=== PATIENT | female | born 1975 | race Hispanic/Latino ===

== ENCOUNTER 2020-11-05 09:52 | Emergency (ER) | payer OTHER, SELFPAY ==
--- NOTE | 2020-11-05 11:54 | ER ---
Nurse's Notes [facility] Name: Jillian Alberto Age: 45 yrs Sex: Female : 1975 Arrival Date: 11/05/2020 Time: 10:00 Bed Waiting Private MD: Diagnosis: Presentation: 11/05 10:05 Chief complaint: Patient states: "I'm seeing lights in my eyes, forehead pressure and hb under eye pressure, and nausea." Denies seeing lights at this time. Reports that her friend gave her a pill to take for her HTN. Coronavirus screen: Client indicates they have traveled out of the [place] in the last 14 days. Client traveled to: [place] At this time, the client does not indicate any symptoms associated with coronavirus-19. Ebola Screen: No symptoms or risks identified at this time. Risk Assessment: Do you want to hurt yourself or someone else? Patient reports no desire to harm self or others. Onset of symptoms was November 05, 2020. 10:05 Method Of Arrival: Ambulatory hb 10:05 Acuity: ISELA 3 hb 10:07 Initial Sepsis Screen: Does the patient meet any 2 criteria? No. Patient's initial hb sepsis screen is negative. Does the patient have a suspected source of infection? No. Patient's initial sepsis screen is negative. Triage Assessment: 10:05 Headache History: The patient has had previous headaches and this one is similar to sv previous episodes. General: Appears in no apparent distress. comfortable, Behavior is calm, cooperative, appropriate for age. Pain: Complains of pain in face. Neuro: Level of Consciousness is awake, alert, obeys commands, Oriented to person, place, time, situation, Gait is steady. GI: Reports nausea. Historical: - Allergies: 10:06 No Known Allergies; hb - PMHx: 10:07 High Cholesterol; hb - PSHx: 10:06 None; hb - Immunization history:: Client reports having NOT received the Covid vaccine. Vital Signs: 10:07 BP 122 / 75; Pulse 73; Resp 16; Temp 97.7; Pulse Ox 99% ; Weight 68.04 kg; Height 5 ft. hb 0 in. (152.40 cm); Pain 7/10; 10:07 Body Mass Index 29.29 (68.04 kg, 152.40 cm) hb ED Course: 10:00 Patient arrived in ED. ds1 10:06 Triage completed. hb 10:06 Arm band placed on. hb Administered Medications: No medications were administered Outcome: 11:54 Patient left the ED. sv Signatures: Marcie Roche RN Tasha García ds1 Yvette Tello RN RN hb Corrections: (The following items were deleted from the chart) 10:07 10:05 Chief complaint: Patient states: "I'm seeing lights in my eyes, forehead pressure hb and under eye pressure, and nausea." Denies seeing lights at this time. hb 10:07 10:06 PMHx: None; hb hb
[2020-11-05 11:57] VITALS: BP 122/75; TEMP 97.7; O2SAT 99
== END 2020-11-05 11:54 | disposition left against medical advice (07) ==
LOC: ER 09:52
DX: Z02.9 Encounter for administrative examinations, unspecified (principal)
CPT/HCPCS: 99281

== ENCOUNTER 2020-11-05 17:01 | Emergency (ER) | payer OTHER, SELFPAY ==
--- NOTE | 2020-11-05 20:19 | RAD REPORT ---
EXAM DESCRIPTION: CT - Head Brain Wo Cont - 11/05/2020 8:12 pm CLINICAL HISTORY: DIZZINESS Headache, drowsiness COMPARISON: Head Brain Wo Cont dated 05/16/2016 TECHNIQUE: All CT scans are performed using dose optimization technique as appropriate and may inclu de automated exposure control or mA/KV adjustment according to patient size. FINDINGS: No intracranial hemorrhage, hydrocephalus or extra-axial fluid collection.No areas of brai n edema or evidence of midline shift. The paranasal sinuses and mastoids are clear. The calvarium is intact. IMPRESSION: No acute intracranial abnormality.
--- NOTE | 2020-11-05 20:22 | RAD REPORT ---
EXAM DESCRIPTION: RAD - Chest Single View - 11/05/2020 8:15 pm CLINICAL HISTORY: COUGH Chest pain. COMPARISON: No comparisons FINDINGS: Portable technique limits examination quality. The lungs are grossly clear. The heart is normal in size. No displaced fractures. IMPRESSION: No acute intrathoracic process suspected.
[2020-11-05] MEDS ORDERED: NA CHLORIDE 0.9% 1,000 ML ONE (20:23)
[2020-11-05 20:27] LABS: Urine Blood 2+ (Negative); Urine Glucose Negative (Negative); Urine Protein Negative (Negative); Urine Specific Gravity >=1.030 (1.005-1.030)
[2020-11-05 20:31] LABS: Absolute Lymphocytes (CBC) 2.4 K/uL (0.7-4.9); Basophils % 0.8 % (0-1.3); Hematocrit 34.5 % (36.0-45.0); Lymphocytes % 32.8 % (15.3-44.8); MPV 7.7 fL (7.6-11.3); RBC Red Blood Cell Count 3.82 M/uL (3.86-4.86)
[2020-11-05 20:44] LABS: Protime INR 0.96
[2020-11-05 20:49] LABS: ALT/SGPT 26 U/L (12-78); Albumin 3.5 g/dL (3.4-5.0); Alkaline Phosphatase 92 U/L (45-117); BUN Blood Urea Nitrogen 13 mg/dL (7-18); Bicarbonate 28 mmol/L (21-32); Bilirubin Direct < 0.1 mg/dL (0-0.2); Bilirubin Total 0.1 mg/dL (0.2-1.0); C-Reactive Protein 6.77 mg/L (<3.00); Glucose Level 102 mg/dL (74-106); NT PRO-BNP 11 pg/mL (<125); Protein, Total 7.6 g/dL (6.4-8.2); Sodium Level 139 mmol/L (136-145); Troponin (Emerg Dept Use Only) < 0.02 ng/mL (0.0-0.045)
[2020-11-05 21:10] LABS: AST/SGOT 17 U/L (15-37); Magnesium 2.2 mg/dL (1.8-2.4); Potassium 3.9 mmol/L (3.5-5.1)
[2020-11-05] MEDS ORDERED: ASPIRIN 81 MG CHEWABLE TABLET ONE (21:48)
[2020-11-05] MEDS ORDERED: FAMOTIDINE 20 MG/2 ML VIAL IV ONE (21:49)
[2020-11-05] MEDS ORDERED: ONDANSETRON 4 MG/2 ML VIAL ONE (21:49)
[2020-11-05] MEDS ORDERED: KETOROLAC 30 MG/ML INJ ONE (21:49)
[2020-11-05 22:15] LABS: Urine Specific Gravity/Preg >1.030 (1.005-1.030)
--- NOTE | 2020-11-05 23:14 | EDPHYS ---
Physician Documentation [facility] Name: Jillian Alberto Age: 45 yrs Sex: Female : 1975 Arrival Date: 11/05/2020 Time: 17:03 Bed 2 Private MD: ED Physician Uche Quan HPI: 11/05 19:59 This 45 yrs old Female presents to ER via Ambulatory with complaints of susan Blurred Vision, Headache. 19:59 The patient complains of pain to the top of head, forehead, right eye, left eye, left susan frontal area and right frontal area. The patient describes the headache as aching. Onset: The symptoms/episode began/occurred today. Associated signs and symptoms: Pertinent positives: blurred vision. Severity of symptoms: At its worst the pain was mild, in the emergency department the pain is unchanged. Headache History: The patient has had previous headaches and this one is similar to previous episodes. The symptoms are alleviated by nothing. the symptoms are aggravated by nothing. The patient has not experienced similar symptoms in the past. 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 - Social history:: Smoking status: Patient denies any tobacco usage or history of. - Family history:: not pertinent. ROS: 19:59 Constitutional: Negative for fever, chills, and weight loss, ENT: Negative for injury, susan pain, and discharge, Neck: Negative for injury, pain, and swelling, Cardiovascular: Negative for chest pain, palpitations, and edema, Respiratory: Negative for shortness of breath, cough, wheezing, and pleuritic chest pain, Abdomen/GI: Negative for abdominal pain, nausea, vomiting, diarrhea, and constipation, Back: Negative for injury and pain, : Negative for injury, bleeding, discharge, and swelling, MS/Extremity: Negative for injury and deformity, Skin: Negative for injury, rash, and discoloration, Psych: Negative for depression, anxiety, suicide ideation, homicidal ideation, and hallucinations, Allergy/Immunology: Negative for hives, rash, and allergies, Endocrine: Negative for neck swelling, polydipsia, polyuria, polyphagia, and marked weight changes. 19:59 Eyes: Positive for blurry vision. 19:59 Neuro: Positive for headache. Exam: 19:59 Constitutional: This is a well developed, well nourished patient who is awake, alert, susan and in no acute distress. Head/Face: Normocephalic, atraumatic. Eyes: Pupils equal round and reactive to light, extra-ocular motions intact. Lids and lashes normal. Conjunctiva and sclera are non-icteric and not injected. Cornea within normal limits. Periorbital areas with no swelling, redness, or edema. ENT: Nares patent. No nasal discharge, no septal abnormalities noted. Tympanic membranes are normal and external auditory canals are clear. Oropharynx with no redness, swelling, or masses, exudates, or evidence of obstruction, uvula midline. Mucous membranes moist. Neck: Trachea midline, no thyromegaly or masses palpated, and no cervical lymphadenopathy. Supple, full range of motion without nuchal rigidity, or vertebral point tenderness. No Meningismus. Chest/axilla: Normal chest wall appearance and motion. Nontender with no deformity. No lesions are appreciated. Cardiovascular: Regular rate and rhythm with a normal S1 and S2. No gallops, murmurs, or rubs. Normal PMI, no JVD. No pulse deficits. Respiratory: Lungs have equal breath sounds bilaterally, clear to auscultation and percussion. No rales, rhonchi or wheezes noted. No increased work of breathing, no retractions or nasal flaring. Abdomen/GI: Soft, non-tender, with normal bowel sounds. No distension or tympany. No guarding or rebound. No evidence of tenderness throughout. Back: No spinal tenderness. No costovertebral tenderness. Full range of motion. Female : Normal external genitalia. Skin: Warm, dry with normal turgor. Normal color with no rashes, no lesions, and no evidence of cellulitis. MS/ Extremity: Pulses equal, no cyanosis. Neurovascular intact. Full, normal range of motion. Neuro: Awake and alert, GCS 15, oriented to person, place, time, and situation. Cranial nerves II-XII grossly intact. Motor strength 5/5 in all extremities. Sensory grossly intact. Cerebellar exam normal. Normal gait. Psych: Awake, alert, with orientation to person, place and time. Behavior, mood, and affect are within normal limits. 20:28 ECG was reviewed by the Attending Physician. susan 21:48 Musculoskeletal/extremity: DVT Exam: No signs of deep vein thrombosis. no pain, no susan swelling, no tenderness, negative Homans' sign noted on exam, no appreciated bluish discoloration, no erythema, no increased warmth. Vital Signs: 17:10 BP 128 / 77; Pulse 64; Resp 16; Temp 97.3; Pulse Ox 97% ; Weight 78.02 kg; Height 5 ft. ll1 0 in. (152.40 cm); Pain 7/10; 21:30 BP 105 / 76; Pulse 65; Resp 18; Pulse Ox 99% on R/A; wh 23:00 BP 101 / 72; Pulse 66; Resp 18; Pulse Ox 100% on R/A; wh 17:10 Body Mass Index 33.59 (78.02 kg, 152.40 cm) ll1 NIH Stroke Scale Scores: 19:59 NIHSS Score: 0 susan Kristine Coma Score: 20:01 Eye Response: spontaneous(4). Verbal Response: oriented(5). Motor Response: obeys [facility] commands(6). Total: 15. MDM: 19:22 Patient medically screened. susan 20:01 Differential diagnosis: cluster headache, migraine, temporal arteritis, tension susan headache, trigeminal neuralgia. Data reviewed: vital signs, nurses notes, lab test result(s), EKG, radiologic studies, CT scan, plain films. Data interpreted: media monitor: rate is 64 beats/min, rhythm is regular, Pulse oximetry: on room air is 97 %. Test interpretation: by ED physician or midlevel provider: ECG, plain radiologic studies. Counseling: I had a detailed discussion with the patient and/or guardian regarding: the historical points, exam findings, and any diagnostic results supporting the discharge/admit diagnosis, lab results, radiology results. 11/05 19:59 Order name: Basic Metabolic Panel [facility] 11/05 19:59 Order name: CBC with Diff; Complete Time: 21:25 susan 11/05 19:59 Order name: LFT's; Complete Time: 21:25 susan 11/05 19:59 Order name: Magnesium; Complete Time: 21:25 [facility] 11/05 19:59 Order name: NT PRO-BNP; Complete Time: 21:25 susan 11/05 19:59 Order name: PT-INR; Complete Time: 21:25 [facility] 11/05 19:59 Order name: Troponin (emerg Dept Use Only); Complete Time: 21:25 [facility] 11/05 19:59 Order name: D-Dimer; Complete Time: 21:25 [facility] 11/05 19:59 Order name: Urine Culture [facility] 11/05 19:59 Order name: Basic Metabolic Panel; Complete Time: 21:25 [facility]TN 11/05 20:23 Order name: C-Reactive Protein; Complete Time: 21:25 [facility]TN 11/05 20:23 Order name: Sedimentation Rate, Westergren; Complete Time: 21:25 [facility]TN 11/05 19:59 Order name: XRAY Chest (1 view); Complete Time: 21:25 [facility] 11/05 19:59 Order name: EKG; Complete Time: 20:00 [facility] 11/05 19:59 Order name: Cardiac monitoring; Complete Time: 20:03 [facility] 11/05 19:59 Order name: EKG - Nurse/Tech; Complete Time: 20:03 [facility] 11/05 19:59 Order name: IV Saline Lock; Complete Time: 20:03 [facility] 11/05 19:59 Order name: Labs collected and sent; Complete Time: 20:03 [facility] 11/05 19:59 Order name: O2 Per Protocol; Complete Time: 20:03 [facility] 11/05 19:59 Order name: CT Head Brain wo Cont; Complete Time: 21:25 [facility] 11/05 20:26 Order name: Urine --Ancillary (enter results); Complete Time: 22:27 [facility] 11/05 20:27 Order name: Urine Dipstick-Ancillary; Complete Time: 21:25 [facility] 11/05 21:27 Order name: CT Chest For PE Angio [facility] 11/05 19:59 Order name: O2 Sat Monitoring; Complete Time: 20:03 [facility] 11/05 19:59 Order name: Urine Dipstick-Ancillary (obtain specimen); Complete Time: 20:26 [facility] 11/05 19:59 Order name: Urine Test (obtain specimen); Complete Time: 20:26 [facility] EC:28 Rate is 59 beats/min. Rhythm is regular. QRS [place] is Normal. AR interval is normal. QRS susan interval is normal. QT interval is normal. No Q waves. T waves are Normal. No ST changes noted. Clinical impression: Sinus bradycardia and No evidence of ischemia. Interpreted by me. Reviewed by me. Administered Medications: 20:08 Drug: NS 0.9% 1000 ml Route: IV; Rate: 1 bolus; Site: right antecubital; mg2 23:26 Follow up: Response: No adverse reaction; IV Status: Completed infusion 21:31 Drug: Aspirin 162 mg Route: PO; wh 23:25 Follow up: Response: No adverse reaction wh 21:33 Drug: TORadol 30 mg Route: IVP; Site: right antecubital; wh 23:25 Follow up: Response: No adverse reaction; Pain is decreased wh 21:35 Drug: Pepcid (famotidine) 20 mg Route: IVP; Site: right antecubital; wh 23:25 Follow up: Response: No adverse reaction 21:37 Drug: Zofran (Ondansetron) 4 mg Route: IVP; Site: right antecubital; wh 23:25 Follow up: Response: No adverse reaction wh 23:25 Follow up: Response: No adverse reaction; Nausea is decreased Disposition: 11/05/20 23:13 Discharged to Home. Impression: Headache, Vision sensitivity deficiencies - blurry vision, Chest pain, unspecified - non cardiac. - Condition is Stable. - Discharge Instructions: Blurred Vision, Adult, Nonspecific Chest Pain, General Headache Without Cause, Nonspecific Chest Pain, [id number], Aspirin and Your Heart, General Headache Without Cause, [id number]. - Prescriptions for Ibuprofen 600 mg Oral Tablet - take 1 tablet by ORAL route every 6 hours As needed take with food; 30 tablet. Zofran 4 mg Oral Tablet - take 1 tablet by ORAL route every 12 hours As needed; 14 tablet. Pepcid 20 mg Oral Tablet - take 1 tablet by ORAL route every 12 hours for 10 days; 20 tablet. - Medication Reconciliation Form, Thank You Letter, Antibiotic Education, Prescription Opioid Use form. - Follow up: Private Physician; When: 2 - 3 days; Reason: Recheck today's complaints, Continuance of care, Re-evaluation by your physician. Follow up: Troy Merino; When: 2 - 3 days; Reason: Recheck today's complaints, Re-evaluation by your physician. - Problem is new. - Symptoms have improved. NIH Stroke Scale - NIH Stroke Score Date: 11/05/2020 Time: 19:59 Total Score = 0 1a. Level of Consciousness (LOC) - 0(Alert) 1b. Level of Consciousness (LOC) (Year \T\ Age) - 0(Both) 1c. LOC Commands (Open \T\ Closes Eyes/[place] [employer] Lab Technician) - 0(Both) 2. Best Gaze (Lateral Gaze Paresis) - 0(Normal) 3. Visual Field Loss - 0(No visual loss) 4. Facial Palsy - 0(Normal) 5a. Left Arm: Motor (10-second hold) - 0(No drift) 5b. Right Arm: Motor (10-second hold) - 0(No drift) 6a. Left Leg: Motor (5-second hold - always test supine) - 0(No drift) 6b. Right Leg: Motor (5-second hold - always test supine) - 0(No drift) 7. Limb Ataxia (finger/nose \T\ heel/kevin - test with eyes open) - 0(Absent) 8. Sensory Loss (pinprick arms/legs/face) - 0(Normal) 9. Best Language: Aphasia (description/naming/reading) - 0(No aphasia) 10. Dysarthria (speech clarity - read or repeat words) - 0(Normal) 11. Extinction and Inattention (visual/tactile/auditory/spatial/personal) - 0(No abnormality) Initials: susan Signatures: Dispatcher [employer] EDMS Uche Quan MD MD cha Habalo, Winsy, RN RN Rah Harkins RN RN [facility] Art Rivas RN RN ll1 Corrections: (The following items were deleted from the chart) 20:22 20:03 WESTERGREN SEDRATE+H.LAB.BRZ ordered. EDTN EDMS 20:23 20:03 C-REACTIVE PROTEIN+C.LAB.BRZ ordered. EDTN EDMS 23:26 23:13 11/05/2020 23:13 Discharged to Home. Impression: Headache; Vision wh sensitivity deficiencies - blurry vision; Chest pain, unspecified - non cardiac. Condition is Stable. Discharge Instructions: Blurred Vision, Adult, General Headache Without Cause, General Headache Without Cause, [id number], Nonspecific Chest Pain, Nonspecific Chest Pain, [id number], Aspirin and Your Heart. Prescriptions for Ibuprofen 600 mg Oral Tablet - take 1 tablet by ORAL route every 6 hours As needed take with food; 30 tablet, Zofran 4 mg Oral Tablet - take 1 tablet by ORAL route every 12 hours As needed; 14 tablet, Pepcid 20 mg Oral Tablet - take 1 tablet by ORAL route every 12 hours for 10 days; 20 tablet. and Forms are Medication Reconciliation Form, Thank You Letter, Antibiotic Education, Prescription Opioid Use. Follow up: Private Physician; When: 2 - 3 days; Reason: Recheck today's complaints, Continuance of care, Re-evaluation by your physician. Follow up: Troy Merino; When: 2 - 3 days; Reason: Recheck today's complaints, Re-evaluation by your physician. Problem is new. Symptoms have improved. susan
--- NOTE | 2020-11-05 23:14 | ER ---
Nurse's Notes [facility] Name: Jillian Alberto Age: 45 yrs Sex: Female : 1975 Arrival Date: 11/05/2020 Time: 17:03 Bed 2 Private MD: Diagnosis: Headache;Vision sensitivity deficiencies-blurry vision;Chest pain, unspecified-non cardiac Presentation: 11/05 17:10 Chief complaint: Patient states: MONTENEGRO, int. R eye blurred vision, nausea, for 1 day. MONTENEGRO ll1 is worse with movement. Came this morning, waited 3 hours, then went to [facility]. After eval., they told her to come back to the ER and get checked. Coronavirus screen: Client denies travel out of the [place] in the last 14 days. headache, nausea, Client presents with at least one sign or symptom that may indicate coronavirus-19. Standard/surgical mask placed on the client. Ebola Screen: Patient denies travel to an Ebola-affected area in the 21 days before illness onset. Initial Sepsis Screen: Does the patient meet any 2 criteria? No. Patient's initial sepsis screen is negative. Does the patient have a suspected source of infection? Yes: Other: MONTENEGRO. Risk Assessment: Do you want to hurt yourself or someone else? Patient reports no desire to harm self or others. Onset of symptoms was November 05, 2020. 17:10 Method Of Arrival: Ambulatory ll1 17:10 Acuity: ISELA 3 ll1 Triage Assessment: 19:35 Headache History: The patient has had previous headaches. General: Appears in no mg2 apparent distress. comfortable. Pain: Pain began gradually. Pain: Complains of pain in head Pain currently is 2 out of 10 on a pain scale. Also complains of nausea. 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 - Social history:: Smoking status: Patient denies any tobacco usage or history of. - Family history:: not pertinent. Screenin:35 Abuse screen: Denies threats or abuse. Denies injuries from another. Nutritional mg2 screening: No deficits noted. Tuberculosis screening: No symptoms or risk factors identified. Fall Risk None identified. Assessment: 19:33 General: Appears in no apparent distress. comfortable, Behavior is calm, cooperative. mg2 Pain: Complains of pain in head. Neuro: Level of Consciousness is awake, alert, obeys commands, Oriented to person, place, time, situation. Cardiovascular: Capillary refill < 3 seconds Patient's skin is warm and dry. Respiratory: Airway is patent Respiratory effort is even, unlabored, Respiratory pattern is regular, symmetrical. : No signs and/or symptoms were reported regarding the genitourinary system. EENT: No signs and/or symptoms were reported regarding the EENT system. Derm: Skin is intact, is healthy with good turgor, Skin is pink, warm \T\ dry. normal. Musculoskeletal: Circulation, motion, and sensation intact. Capillary refill < 3 seconds. 19:34 GI: Reports nausea. mg2 21:00 Reassessment: Patient appears in no apparent distress at this time. Patient and/or family updated on plan of care and expected duration. Pain level reassessed. Patient is alert, oriented x 3, equal unlabored respirations, skin warm/dry/pink. 22:30 Reassessment: Patient appears in no apparent distress at this time. Patient and/or family updated on plan of care and expected duration. Pain level reassessed. Patient is alert, oriented x 3, equal unlabored respirations, skin warm/dry/pink. Vital Signs: 17:10 BP 128 / 77; Pulse 64; Resp 16; Temp 97.3; Pulse Ox 97% ; Weight 78.02 kg; Height 5 ft. ll1 0 in. (152.40 cm); Pain 7/10; 21:30 BP 105 / 76; Pulse 65; Resp 18; Pulse Ox 99% on R/A; wh 23:00 BP 101 / 72; Pulse 66; Resp 18; Pulse Ox 100% on R/A; wh 17:10 Body Mass Index 33.59 (78.02 kg, 152.40 cm) ll1 [place] Coma Score: 20:01 Eye Response: spontaneous(4). Verbal Response: oriented(5). Motor Response: obeys [facility] commands(6). Total: 15. NIH Stroke Scale Scores: 19:59 NIHSS Score: 0 [facility] ED Course: 17:03 Patient arrived in ED. am2 17:13 Triage completed. ll1 17:13 Arm band placed on Patient notified of wait time. ll1 19:22 Rah Harkins, RN is Primary Nurse. mg2 19:22 Uche Quan MD is Attending Physician. susan 19:35 Patient has correct armband on for positive identification. Door closed. Warm blanket mg2 given. 19:35 No provider procedures requiring assistance completed. mg2 20:09 Inserted saline lock: 20 gauge in right antecubital area, using aseptic technique. mg2 Blood collected. 20:12 CT Head Brain wo Cont In Process Unspecified. EDMS 20:15 XRAY Chest (1 view) In Process Unspecified. EDMS 22:46 CT Chest For PE Angio In Process Unspecified. EDMS 23:13 Troy Merino MD is Referral Physician. [facility] 23:24 IV discontinued, intact, bleeding controlled, No redness/swelling at site. Administered Medications: 20:08 Drug: NS 0.9% 1000 ml Route: IV; Rate: 1 bolus; Site: right antecubital; [facility] 23:26 Follow up: Response: No adverse reaction; IV Status: Completed infusion 21:31 Drug: Aspirin 162 mg Route: PO; 23:25 Follow up: Response: No adverse reaction 21:33 Drug: TORadol 30 mg Route: IVP; Site: right antecubital; 23:25 Follow up: Response: No adverse reaction; Pain is decreased 21:35 Drug: Pepcid (famotidine) 20 mg Route: IVP; Site: right antecubital; 23:25 Follow up: Response: No adverse reaction 21:37 Drug: Zofran (Ondansetron) 4 mg Route: IVP; Site: right antecubital; 23:25 Follow up: Response: No adverse reaction 23:25 Follow up: Response: No adverse reaction; Nausea is decreased Outcome: 23:13 Discharge ordered by . susan 23:24 Discharged to home ambulatory. 23:24 Condition: stable 23:24 Discharge instructions given to patient, Instructed on discharge instructions, follow up and referral plans. POC Demonstrated understanding of instructions, follow-up care, medications, POC Prescriptions given X 3. 23:26 Patient left the ED. NIH Stroke Scale - NIH Stroke Score Date: 11/05/2020 Time: 19:59 Total Score = 0 1a. Level of Consciousness (LOC) - 0(Alert) 1b. Level of Consciousness (LOC) (Year \T\ Age) - 0(Both) 1c. LOC Commands (Open \T\ Closes Eyes/Senior Sales Consultant) - 0(Both) 2. Best Gaze (Lateral Gaze Paresis) - 0(Normal) 3. Visual Field Loss - 0(No visual loss) 4. Facial Palsy - 0(Normal) 5a. Left Arm: Motor (10-second hold) - 0(No drift) 5b. Right Arm: Motor (10-second hold) - 0(No drift) 6a. Left Leg: Motor (5-second hold - always test supine) - 0(No drift) 6b. Right Leg: Motor (5-second hold - always test supine) - 0(No drift) 7. Limb Ataxia (finger/nose \T\ heel/kevin - test with eyes open) - 0(Absent) 8. Sensory Loss (pinprick arms/legs/face) - 0(Normal) 9. Best Language: Aphasia (description/naming/reading) - 0(No aphasia) 10. Dysarthria (speech clarity - read or repeat words) - 0(Normal) 11. Extinction and Inattention (visual/tactile/auditory/spatial/personal) - 0(No abnormality) Initials: susan Signatures: Dispatcher [employer] Uche Lugo MD MD cha Moreno, Amanda am2 Deirdre John RN RN wh Rah Harkins RN RN mg2 Art Rivas RN RN ll1 Corrections: (The following items were deleted from the chart) 19:34 19:33 GI: No signs and/or symptoms were reported involving the gastrointestinal mg2 system. mg2
[2020-11-05 23:58] VITALS: TEMP 97.3
[2020-11-06 00:21] VITALS: BP 101/72; O2SAT 100
--- NOTE | 2020-11-06 12:48 | EKG ---
Test Date: 2020-11-05 Test Time: 20:04:21 [employer]: MEASUREMENT RESULTS: Intervals: Rate: 59 DC: 136 QRSD: 80 QT: 424 QTc: 419 [place]: P: 42 DC: 136 QRS: 71 T: 39 INTERPRETIVE STATEMENTS: Sinus bradycardia Nonspecific T wave abnormality Abnormal ECG No previous ECG available for comparison Electronically Signed On 11-06-20 12:45:30 CDT by Jabari Sheppard
--- NOTE | 2020-11-06 12:55 | RAD REPORT ---
EXAM DESCRIPTION: CT - Chest For Pe Angio - 11/06/2020 6:59 am CLINICAL HISTORY: 45-year-old female with dyspnea. COMPARISON: None. TECHNIQUE: CT angiography of the pulmonary arteries was performed following intravenous administrati on of contrast. Coronal and bilateral oblique maximum intensity projections (MIPS) were created. This exam was performed according to our departmental dose optimization program which includes use of aut omated exposure control, adjustment of the mA and/or kV according to patient size and/or use of itera tive reconstruction technique. FINDINGS: Chest: Evaluation through the lungs reveals no focal opacity, pleural effusion or pneumothorax. There is min imal dependent basilar atelectasis and scarring. The tracheobronchial airways are patent. No signific ant mediastinal or axillary lymphadenopathy by CT measurement criteria. Limited evaluation of the upper abdomen shows no acute intra-abdominal abnormalities. The osseous structures are within normal limits. CT angiography: Diagnostic CT angiography of the pulmonary arteries without intraluminal filling defe ct noted to suggest pulmonary arterial embolus. IMPRESSION: 1. Diagnostic pulmonary angiography without findings to suggest pulmonary arterial embol us. 2. The lungs are clear without focal opacity, pleural effusion or pneumothorax. 3. No specific findings are noted to suggest etiology of the patient's chest pain and shortness of br eath. Electronically signed by: Blanca Woods MD 11/05/2020 11:02 PM CDT Due to temporary technical issues with the PACS/Fluency reporting system, reports are being signed by the in house radiologist without review as a courtesy to ensure prompt reporting. The interpreting r adiologist is fully responsible for the content of the report.
== END 2020-11-05 23:26 | disposition home or self-care (01) ==
LOC: ER 17:01
DX: R51.9 Headache, unspecified (principal); R07.89 Other chest pain
CPT/HCPCS: 36415; 70450; 71045; 71275; 80048; 80076; 81003; 81025; 83735; 83880; 84484; 85025; 85379; 85610; 85652; 86140; 87086; 87088; 93005; 96361; 96374; 96375; 99284; J2405; J7030; Q9967